=== PATIENT | female | born 1995 | race Caucasian/White ===

== ENCOUNTER 2016-04-18 06:58 | Emergency (ER) | payer BC ==
[2016-04-18] MEDS ORDERED: KETOROLAC 30 MG/ML VIAL ONE (07:55)
== END 2016-04-18 10:32 | disposition home or self-care (01) ==
LOC: ER 06:58
DX: G43.009 Migraine without aura, not intractable, without status migrainosus (principal)
CPT/HCPCS: 96374; 96375